=== PATIENT | male | born 1960 | race Caucasian/White ===

== ENCOUNTER → 2016-11-25 | Outpatient (CLI) | payer BC ==
--- NOTE | 2016-11-29 09:09 | CR ---
EXAMINATION: Left knee HISTORY: Pain COMPARISON: None TECHNIQUE: 4 views FINDINGS/IMPRESSION: There is no acute osseous abnormality, effusion, dislocation, or fracture ident ified. Bone mineralization and joint spaces are grossly preserved. There is early osteophyte formati on is noted.
== END ==
LOC: MW.CHORTHO 07:44
PROVIDERS: ATTEND Orthopaedic Surgery
DX: M25.562 Pain in left knee (principal)
CPT/HCPCS: 73564-26-LT; 73564-LT

== ENCOUNTER 2018-08-29 08:45 | Day surgery (SDC) | payer BC ==
[~2018-08-29 08:45] MED LIST: Lactated Ringers 1,000 ML IV SCH; Sodium Chloride 0.9% 10 ML Syringe FLUSH PRN; Sodium Chloride 0.9% 2.5 ML Syringe FLUSH PRN
--- NOTE | 2018-08-29 10:00 | PCM.PREANE ---
Preanesthetic Assessment - Anesthesia/Transfusion/Family Hx Anesthesia History: Prior Anesthesia Without Reaction Family History of Anesthesia Reaction: No Transfusion History: No Prior Transfusion(s) - Review of Systems General: No Symptoms Pulmonary: No Symptoms Cardiovascular: No Symptoms Neurological: No Symptoms Other: Reports: None - Physical Assessment NPO Status Date: 08/28/18 O2 Sat by Pulse Oximetry: 94 Respiratory Rate: 16 Vital Signs: Last Vital Signs Temp 96.8 F 08/29/18 09:10 Pulse 72 08/29/18 09:10 Resp 16 08/29/18 09:10 BP 121/78 08/29/18 09:10 Pulse Ox 94 L 08/29/18 09:10 Height: 5 ft 11 in Weight: 100.698 kg ASA Class: 2 Mental Status: Alert & Oriented x3 Airway Class: Mallampati = 2 Dentition: Reports: Normal Dentition ROM/Head Extension: Full Lungs: Clear to Auscultation, Normal Respiratory Effort Cardiovascular: Regular Rate, Regular Rhythm - Allergies Allergies/Adverse Reactions: Allergies Allergy/AdvReac Type Severity Reaction Status Date / Time No Known Allergies Allergy Verified 08/24/18 09:12 - Blood Blood Available: No - Anesthesia Plan Pre-Op Medication Ordered: None - Acknowledgements Anesthesia Type Planned: General Anesthesia, MAC Pt an Appropriate Candidate for the Planned Anesthesia: Yes Alternatives and Risks of Anesthesia Discussed w Pt/Guardian: Yes Pt/Guardian Understands and Agrees with Anesthesia Plan: Yes Additional Comments: PMH: 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, on phenobarb, hld, "prediabetes" PLAN: mac/tiva PreAnesthesia Questionnaire HEENT History: Reports: None Cardiovascular History: Reports: High Cholesterol Respiratory History: Reports: None Gastrointestinal History: Reports: None Genitourinary History: Reports: None Musculoskeletal History: Reports: Fracture Neurological History: Reports: Seizure Psychiatric History: Reports: None Endocrine/Metabolic History: Reports: None Hematologic History: Reports: None Immunologic History: Reports: None Oncologic (Cancer) History: Reports: Basal Cell Carcinoma Other Oncologic History: basal cell rt ear Dermatologic History: Reports: None - Infectious Disease History Infectious Disease History: Reports: Chicken Pox - Past Surgical History Head Surgeries/Procedures: Reports: None HEENT Surgical History: Reports: Tonsillectomy Cardiovascular Surgical History: Reports: None Respiratory Surgical History: Reports: None GI Surgical History: Reports: Colonoscopy Male Surgical History: Reports: None Neurological Surgical History: Reports: None Musculoskeletal Surgical History: Reports: Other (See Below) Other Musculoskeletal Surgeries/Procedures:: right shoulder surgery for bone spur, ORIF left femur fx, removal of hardware left femur Dermatological Surgical History: Reports: Skin Biopsy - SUBSTANCE USE Smoking Status *Q: Never Smoker Recreational Drug Use History: No - HOME MEDS Home Medications: Home Meds Aspirin [Adult Low Dose Aspirin EC] 81 mg PO DAILY 11/19/15 [History] atorvaSTATin [Lipitor] 20 mg PO BEDTIME 11/19/15 [History] Cyclobenzaprine HCl 1 tab PO BID PRN 08/24/18 [History] PHENobarbital [Phenobarbital] 2 tab PO BEDTIME 08/24/18 [History] - CURRENT (IN HOUSE) MEDS Current Meds: Current Medications Lactated Ringer's (Ringers, Lactated) 1,000 mls @ 125 mls/hr IV ASDIRECTED MAHAMED Last Admin: 08/29/18 09:20 Dose: 125 mls/hr Sodium Chloride (Saline Flush) 10 ml FLUSH ASDIRECTED PRN PRN Reason: Keep Vein Open Sodium Chloride (Saline Flush) 2.5 ml FLUSH ASDIRECTED PRN PRN Reason: Keep Vein Open Sodium Chloride (Saline Flush) 10 ml FLUSH ASDIRECTED PRN PRN Reason: Keep Vein Open Sodium Chloride (Saline Flush) 2.5 ml FLUSH ASDIRECTED PRN PRN Reason: Keep Vein Open
[2018-08-29] MEDS ORDERED: Propofol 200 MG/20 ML SDV ONE (10:40)
[2018-08-29] MEDS ORDERED: Midazolam 1 MG/ML 2 ML SDV ONE (10:40)
[2018-08-29] MEDS ORDERED: fentaNYL 100 MCG/2 ML SDV ONE (10:40)
--- NOTE | 2018-08-29 11:13 | PCM.OPNOTE ---
- General Post-Op/Procedure Note Date of Surgery/Procedure: 08/29/18 Operative Procedure(s): Diagnostic colonoscopy Findings: Irritated right lateral hemorrhoid. Pre Op Diagnosis: Rectal bleeding Post-Op Diagnosis: Irritated right lateral hemorrhoid Anesthesia Technique: [facility] Primary Surgeon: Quiana Orantes Complications: None Condition: Good
--- NOTE | 2018-08-29 11:31 | PCM.POSTAN ---
POST ANESTHESIA ASSESSMENT - MENTAL STATUS Mental Status: Alert, Oriented - RESPIRATORY Respiratory Status: Respiratory Rate WNL, Airway Patent, O2 Saturation Stable - CARDIOVASCULAR CV Status: Pulse Rate WNL, Blood Pressure Stable - GASTROINTESTINAL GI Status: No Symptoms - POST OP HYDRATION Hydration Status: Adequate & Stable
--- NOTE | 2018-08-29 11:32 | PCM48HPAN ---
Post Anesthesia Note - EVALUATION WITHIN 48HRS OF ANESTHETIC Vital Signs in Normal Range: Yes Patient Participated in Evaluation: Yes Respiratory Function Stable: Yes Airway Patent: Yes Cardiovascular Function Stable: Yes Hydration Status Stable: Yes Pain Control Satisfactory: Yes Nausea and Vomiting Control Satisfactory: Yes Mental Status Recovered: Yes Resp Rate: 14
[2018-08-29 11:36] VITALS: BP 117/73
--- NOTE | 2018-08-30 12:21 | OR ---
SURGEON: ZIGGY MYERS MD DATE OF PROCEDURE: 08/29/2018 PREOPERATIVE DIAGNOSES: 1. Change in bowel habits. 2. Bright red bleeding per rectum. POSTOPERATIVE DIAGNOSIS: Grade 4 hemorrhoid. PROCEDURE PERFORMED: Diagnostic colonoscopy. ANESTHESIA: MAC. INSTRUMENT USED: Olympus colonoscope. EXTENT OF EXAM: To the cecum. PREPARATION: Good. LIMITATIONS: None. INDICATION FOR EXAMINATION: The patient is a 57-year-old male who presents with a change in his bowel habits as well as bright red bleeding per rectum. He feels like there is tissue that is going in and out when he has a bowel movement. I explained the need for diagnostic colonoscopy. I explained the procedure, expected perioperative course, and risks including bleeding, infection, or damage to surrounding structures including perforation. The patient verbalized understanding and wishes to proceed. PROCEDURE IN DETAIL: The patient was brought into the endoscopy suite and placed in a left lateral decubitus position. A time-out was completed verifying the patient's name, age, date of , allergies, and procedure to be performed. Monitored anesthesia care was induced and continuous oxygen was provided via nasal cannula throughout the procedure. After adequate sedation was achieved, a digital rectal exam was performed. This exam revealed a right lateral hemorrhoid that was enlarged and slightly fungated. Upon manipulation, it started bleeding. A photograph of this was taken. A well lubricated colonoscope was then inserted into the rectum and advanced under direct visualization to the level of the cecum. The cecum was identified by both visual and anatomic landmarks. A photograph was taken of the cecal cap as well as with the scope retroflexed within the cecum. The scope was then straightened out and fully withdrawn while examining the color, texture, anatomy, and integrity of the mucosa from the cecum to the anal canal. The findings were consistent with normal colonic mucosa. The scope was brought into the rectum and retroflexed to allow visualization of the anal canal opening. This appeared normal and a photograph was taken. Scope was then straightened out and fully withdrawn. The cecum to anus time was 7 minutes. The patient tolerated the procedure well and was taken to PACU in stable condition. ENDOSCOPIC DIAGNOSIS: Grade 4 hemorrhoid. RECOMMENDATIONS: Follow up in clinic in 2 weeks to discuss excision of this hemorrhoid. ZULEYKA / RHETT /[id number]
== END 2018-08-29 11:50 | disposition home or self-care (01) ==
LOC: MW.SDS 08:45
PROVIDERS: ATTEND Surgery
DX: K62.5 Hemorrhage of anus and rectum (principal); K64.3 Fourth degree hemorrhoids; R19.4 Change in bowel habit; E78.00 Pure hypercholesterolemia, unspecified; E66.9 Obesity, unspecified; Z68.30 Body mass index [BMI] 30.0-30.9, adult; R73.03 Prediabetes; Z79.82 Long term (current) use of aspirin; Z79.899 Other long term (current) drug therapy
CPT/HCPCS: J2250; J2704; J3010; J7120

== ENCOUNTER 2018-10-05 07:55 | Day surgery (SDC) | payer BC ==
[~2018-10-05 07:55] MED LIST changes: +Sodium Chloride 0.9% 10 ML SDV IV PRN; +cefOXitin 2 GM in Premix Bag 1 BAG IV ONE
[2018-10-05] MEDS ORDERED: Midazolam 1 MG/ML 2 ML SDV IVPUSH ONE (08:52)
--- NOTE | 2018-10-05 08:53 | PCM.PREANE ---
Preanesthetic Assessment - Anesthesia/Transfusion/Family Hx Anesthesia History: Prior Anesthesia Without Reaction Family History of Anesthesia Reaction: No Transfusion History: No Prior Transfusion(s) Intubation History: Unknown - Review of Systems General: No Symptoms Pulmonary: No Symptoms Cardiovascular: No Symptoms Gastrointestinal: No Symptoms Neurological: No Symptoms Other: Reports: None - Physical Assessment Height: 1.8 m Weight: 100.698 kg ASA Class: 2 Mental Status: Alert & Oriented x3 Airway Class: Mallampati = 2 Dentition: Reports: Normal Dentition Thyro-Mental Finger Breadths: 3 Mouth Opening Finger Breadths: 3 ROM/Head Extension: Full Lungs: Clear to Auscultation, Normal Respiratory Effort Cardiovascular: Regular Rate, Regular Rhythm - Allergies Allergies/Adverse Reactions: Allergies Allergy/AdvReac Type Severity Reaction Status Date / Time No Known Allergies Allergy Verified 09/29/18 12:15 - Blood Blood Available: No - Anesthesia Plan Pre-Op Medication Ordered: None - Acknowledgements Anesthesia Type Planned: General Anesthesia Pt an Appropriate Candidate for the Planned Anesthesia: Yes Alternatives and Risks of Anesthesia Discussed w Pt/Guardian: Yes Pt/Guardian Understands and Agrees with Anesthesia Plan: Yes PreAnesthesia Questionnaire HEENT History: Reports: None Cardiovascular History: Reports: High Cholesterol Respiratory History: Reports: None Gastrointestinal History: Reports: None Genitourinary History: Reports: None Musculoskeletal History: Reports: Fracture Neurological History: Reports: Seizure Other Neuro History: last seizure in 1992 Psychiatric History: Reports: None Endocrine/Metabolic History: Reports: Obesity/BMI 30+ Hematologic History: Reports: None Immunologic History: Reports: None Oncologic (Cancer) History: Reports: Basal Cell Carcinoma Other Oncologic History: basal cell rt ear Dermatologic History: Reports: None - Infectious Disease History Infectious Disease History: Reports: Chicken Pox - Past Surgical History Head Surgeries/Procedures: Reports: None HEENT Surgical History: Reports: Tonsillectomy Cardiovascular Surgical History: Reports: None Respiratory Surgical History: Reports: None GI Surgical History: Reports: Colonoscopy Male Surgical History: Reports: None Neurological Surgical History: Reports: None Musculoskeletal Surgical History: Reports: Other (See Below) Other Musculoskeletal Surgeries/Procedures:: right shoulder surgery for bone spur, ORIF left femur fx, removal of hardware left femur Dermatological Surgical History: Reports: Skin Biopsy - SUBSTANCE USE Smoking Status *Q: Never Smoker Recreational Drug Use History: No - HOME MEDS Home Medications: Home Meds Aspirin [Adult Low Dose Aspirin EC] 81 mg PO DAILY 11/19/15 [History] atorvaSTATin [Lipitor] 20 mg PO BEDTIME 11/19/15 [History] Cyclobenzaprine HCl 1 tab PO BID PRN 08/24/18 [History] PHENobarbital [Phenobarbital] 2 tab PO BEDTIME 08/24/18 [History] - CURRENT (IN HOUSE) MEDS Current Meds: Current Medications Lactated Ringer's (Ringers, Lactated) 1,000 mls @ 125 mls/hr IV ASDIRECTED MAHAMED Sodium Chloride (Saline Flush) 10 ml FLUSH ASDIRECTED PRN PRN Reason: Keep Vein Open Sodium Chloride (Saline Flush) 2.5 ml FLUSH ASDIRECTED PRN PRN Reason: Keep Vein Open Sodium Chloride (Normal Saline) 10 ml IV ASDIRECTED PRN PRN Reason: IV Use Discontinued Medications Cefoxitin Sodium 2 gm/ Premix 50 mls @ 100 mls/hr IV ONETIME ONE Stop: 10/04/18 13:20
[2018-10-05] MEDS ORDERED: Ondansetron 4 MG/2 ML SDV ONE (09:59)
[2018-10-05] MEDS ORDERED: Propofol 200 MG/20 ML SDV ONE (09:59)
[2018-10-05] MEDS ORDERED: fentaNYL 100 MCG/2 ML SDV ONE (09:59)
[2018-10-05] MEDS ORDERED: Midazolam 1 MG/ML 2 ML SDV ONE (09:59)
[2018-10-05] MEDS ORDERED: Bupivacaine 0.5% 10 ML SDV ONE ×2 (10:05→10:06)
[2018-10-05] MEDS ORDERED: Lidocaine 2% Jelly 30 ML Tube ONE (10:06)
[2018-10-05] MEDS ORDERED: cefOXitin 1 GM Vial ONE (10:23)
[2018-10-05] MEDS ORDERED: Gelatin Sponge,Absorbable 12-7 mm Sponge TOP ONE ×2 (10:29→11:49)
--- NOTE | 2018-10-05 12:29 | PCM.OPNOTE ---
- General Post-Op/Procedure Note Date of Surgery/Procedure: 10/05/18 Operative Procedure(s): Anal canal biopsy Findings: Right lateral hemorrhoidal column with everlying friable tissue extending through the anal canal. Anal biopsies taken. Frozen section snows no malignancy on one section. Pre Op Diagnosis: Hemorrhoid Post-Op Diagnosis: Anal canal lesion Anesthesia Technique: General ET Tube Primary Surgeon: Quiana Orantes Secondary Surgeon: Arlette Lange Fluid Replacement, Intraop: 1,000 Output, Urine Amount: 0 EBL in mLs: 15 Condition: Good Free Text/Narrative:: Intake & Output 10/04/18 10/05/18 10/05/18 22:59 06:59 14:59 Intake Total 900 Balance 900
--- NOTE | 2018-10-05 12:53 | PCM48HPAN ---
Post Anesthesia Note - EVALUATION WITHIN 48HRS OF ANESTHETIC Vital Signs in Normal Range: Yes Patient Participated in Evaluation: Yes Respiratory Function Stable: Yes Airway Patent: Yes Cardiovascular Function Stable: Yes Hydration Status Stable: Yes Pain Control Satisfactory: Yes Nausea and Vomiting Control Satisfactory: Yes Mental Status Recovered: Yes Resp Rate: 12 - COMMENTS/OBSERVATIONS Free Text/Narrative:: no anesthesia problems
[2018-10-05 13:52] VITALS: BP 134/74
--- NOTE | 2018-10-05 18:50 | OR ---
SURGEON: ZIGGY MYERS MD DATE OF PROCEDURE: 10/05/2018 PREOPERATIVE DIAGNOSIS: Hemorrhoid. POSTOPERATIVE DIAGNOSIS: Anal canal lesion. PROCEDURE PERFORMED: Exam under anesthesia, biopsy of anal canal lesion. PANEL ASSEMBLER: PRISCILLA Lin student. ANESTHESIA: General LMA. FLUIDS: 1000 mL of crystalloid. ESTIMATED BLOOD LOSS: 15 mL. FINDINGS: Right lateral hemorrhoidal column with overlying irregular friable tissue extending through the anal canal to the anoderm. Multiple anal biopsies taken. Single frozen section along the anoderm showed no malignancy. COMPLICATIONS: None. INDICATIONS: The patient is a 57-year-old male who recently underwent a screening colonoscopy for bright red bleeding per rectum. During the colonoscopy, the patient was noted to have an enlarged right hemorrhoidal column with some irregular tissue overlying it. This was felt to be an irritated prolapsing hemorrhoid. Multiple photographs of this were taken and I discussed my options with the patient during his post colonoscopy appointment. Given its irregular appearance, I recommended an exam under anesthesia and hemorrhoidectomy. At that time, I favored an inflamed hemorrhoid. The patient and I discussed the procedure, expected perioperative course, and the risks including bleeding, infection, or damage to surrounding structures. He verbalized understanding and wishes to proceed. PROCEDURE IN DETAIL: The patient was brought into the OR and placed on the OR table in supine position. A time-out was completed verifying the patient's name, age, date of , allergies, and procedure to be performed. General LMA anesthesia was induced. Once adequate sedation was achieved, the patient was placed in the left lateral decubitus position. All bony prominences were appropriately padded, and the patient was secured to the bed. I then prepped and draped the buttocks and anus in the usual standard fashion. A digital rectal exam was performed. I palpated some irregular friable tissue along the right posterior anal canal. This started bleeding with manipulation. It did not feel fixed to the tissues below it. A bivalve proctoscope was inserted into the anal canal to allow better visualization of this area. On inspection, the patient did have an enlarged hemorrhoidal column, but overlying this, was irregular appearing friable tissue that was concerning. I called my partner, Dr. Aurelio Rosario into the operating room for a second opinion. He agreed that the tissue appeared irregular and had the potential for malignancy. The decision was made to perform a frozen section. A small 5 mm piece of tissue was taken at the distal aspect of the lesion near the dermal junction. This showed some inflammatory tissue, but no evidence of gross malignancy. Despite this finding, I made the decision to not perform a hemorrhoidectomy, but instead to take multiple small biopsies along the lesion to send for more definitive pathologic review. Using a pickup, I tried to elevate some of the lesion off the surrounding tissue, so I could take a larger biopsy. The tissue was necrotic and most came off in small pieces. I was able to elevate a slightly bigger section of tissue along the most irregular appearing aspect and removed this using Metzenbaum scissors. All the tissue I removed was sent to Pathology for permanent section. Using needle-tip cautery, I cauterized pinpoint areas of bleeding. I then placed Gel-Foam and Surgicel over the wound and held pressure. After approximately 5 minutes, I reinspected my operative field and appeared to be hemostatic. I anesthetized the anoderm circumferentially with 5 mL of 0.5% Marcaine plain. A clean piece of Surgicel, 4 x 4, fluffs, and ABD were placed over the anus. The dressings were held in place by mesh underwear. The patient was then placed in a supine position and extubated. He was taken to the PACU in stable condition. All counts were complete and correct at the end of the case. The patient tolerated the procedure well with no immediate complications. ZULEYKA DELANEY /[id number]
== END 2018-10-05 13:20 | disposition home or self-care (01) ==
LOC: MW.SDS 07:55
PROVIDERS: ATTEND Surgery
DX: K64.8 Other hemorrhoids (principal); K62.89 Other specified diseases of anus and rectum; E66.9 Obesity, unspecified; E78.00 Pure hypercholesterolemia, unspecified; Z79.82 Long term (current) use of aspirin; Z79.899 Other long term (current) drug therapy
CPT/HCPCS: 46606; J0694; J2001; J2250; J2405; J2704; J3010; J3490; J7120

== ENCOUNTER 2022-04-25 11:03 | Emergency (ER) | payer BC ==
[2022-04-25] MEDS ORDERED: Ibuprofen 400 MG Tab PO ONE (11:04)
[2022-04-25] MEDS ORDERED: Iopamidol 755 Mg/ML 100 ML Bottle IV ONE (11:04)
[2022-04-25] MEDS ORDERED: Lidocaine 5% 700 MG Patch TRDERM ONE (11:04)
== END 2022-04-25 15:00 | disposition home or self-care (01) ==
LOC: MW.ED 11:03
DX: R07.81 Pleurodynia (principal); W01.0XXA Fall on same level from slipping, tripping and stumbling without subsequent striking against object, initial encounter
CPT/HCPCS: 71260; 74177; 99284; A9270; Q9967

== ENCOUNTER 2024-08-24 09:15 | Day surgery (SDC) | payer BC ==
[2024-08-24] MEDS: Lactated Ringers 1,000 ML IV SCH (09:45)
[2024-08-24] MEDS ORDERED: propofoL 500 MG/50 ML 50 ML ONE ×2 (10:28→11:14)
[2024-08-24 13:56] VITALS: BP 129/82; PULSE 60
== END 2024-08-24 13:09 | disposition home or self-care (01) ==
LOC: MW.SDS 09:15
PROVIDERS: ATTEND Surgery
DX: K29.50 Unspecified chronic gastritis without bleeding (principal); K31.7 Polyp of stomach and duodenum; K44.9 Diaphragmatic hernia without obstruction or gangrene; K21.9 Gastro-esophageal reflux disease without esophagitis; E78.00 Pure hypercholesterolemia, unspecified; Z79.82 Long term (current) use of aspirin; Z79.899 Other long term (current) drug therapy
CPT/HCPCS: 43239; 45380; J2704; J7120; 00813

== ENCOUNTER 2024-10-20 11:56 | Emergency (ER) | payer BC ==
[2024-10-20 12:25] VITALS: BP 127/73; PULSE 71
== END 2024-10-20 14:18 | disposition home or self-care (01) ==
LOC: MW.ED 11:56
DX: S93.402A Sprain of unspecified ligament of left ankle, initial encounter (principal); E78.00 Pure hypercholesterolemia, unspecified; Z75.8 Other problems related to medical facilities and other health care; Z79.899 Other long term (current) drug therapy; X50.0XXA Overexertion from strenuous movement or load, initial encounter; Y93.89 Activity, other specified
CPT/HCPCS: 73610-26-LT; 73610-LT; 99282; 99283